=== PATIENT | female | born 1940 | race Caucasian/White ===

== ENCOUNTER 2018-07-21 19:50 | Inpatient (IN) | payer MEDICARE, OTHER ==
[2018-07-21] MEDS ORDERED: NS 0.9% 1000 ML** 1,000 ML IV ONE (20:01)
[2018-07-21] MEDS ORDERED: Haloperidol INJ IV/IM* 5 MG/ML AMP IM ONE (20:01)
--- NOTE | 2018-07-21 20:54 | ED ---
Abdominal Pain/Female - HPI Summary HPI Summary: The patient is a 77 year old female who is presenting to the [facility] with a chief complaint of decreased BM. The patient is a transfer from [facility] and is received by the [facility] for a potential SBO. Two valiums were given prior to [facility] arrival and the patient is known to have dementia. A BM has not occurred over the past few days. The patient also has vomited 3x since symptoms started. Abd pain is reported by the patient to be mild and wheezing is also reported. The symptoms are aggravated by nothing. Symptoms are alleviated by nothing. - History of Current Complaint Chief Complaint: EDConstipation Stated Complaint: SMALL BOWEL OBSTRUCTION PER EMS Time Seen by Provider: 07/21/18 19:53 Hx Obtained From: Patient Onset/Duration: Gradual Onset Timing: Constant Severity Initially: Mild Severity Currently: Mild Aggravating Factor(s): Nothing Alleviating Factor(s): Nothing Associated Signs and Symptoms: Positive: Vomiting, Other: - No BM for few days Allergies/Adverse Reactions: Allergies Allergy/AdvReac Type Severity Reaction Status Date / Time aspirin Allergy Unknown Verified 07/21/18 19:57 Reaction Details azithromycin Allergy Unknown Verified 07/21/18 19:57 Reaction Details Penicillins Allergy Unknown Verified 07/21/18 19:57 Reaction Details prednisone Allergy Unknown Verified 07/21/18 19:57 Reaction Details PMH/Surg Hx/FS Hx/Imm Hx Sensory History: Denies: Hx Legally Blind, Hx Deafness Opthamlomology History: Denies: Hx Legally Blind EENT History: Denies: Hx Deafness Neurological History: Reports: Hx Dementia - Immunization History Date of Tetanus Vaccine: unk Date of Influenza Vaccine: none Infectious Disease History: Unable to Obtain/Confirm Infectious Disease History: Denies: Traveled Outside the [place] in Last 30 Days - Family History Known Family History: Positive: Unknown - Pt has Dementia - Social History Occupation: Retired Alcohol Use: None Substance Use Type: Reports: None Smoking Status (MU): Never Smoked Tobacco Review of Systems Constitutional: Negative Eyes: Negative ENT: Negative Cardiovascular: Negative Positive: Shortness Of Breath - Wheezing Positive: Abdominal Pain, Vomiting, Other - Constipation (Lack of BM) Genitourinary: Negative Musculoskeletal: Negative Skin: Negative Neurological: Negative Psychological: Normal All Other Systems Reviewed And Are Negative: Yes Physical Exam - Summary Physical Exam Summary: Appearance: Well-appearing, Well-nourished, lying in bed comfortable Skin: Warm, dry, no obvious rash Eyes: sclera anicteric, no conjunctival pallor ENT: mucous membranes moist Neck: deferred Respiratory: No signs of respiratory distress Cardiovascular: Appears well perfused, pulses are nml Abdomen: Distended abd Two vertical surgical scars midline and left of midline Reducible incisional hernia left of the midline No inguinal hernias Musculoskeletal: Moving all 4 extremities without obvious discomfort Neurological: Awake and alert, mentation is normal, speech is fluent and appropriate Psychiatric: affect is normal, does not appear anxious or depressed Triage Information Reviewed: Yes Vital Signs On Initial Exam: Initial Vitals Temp Pulse Resp BP Pulse Ox 97.2 F 99 17 128/73 99 07/21/18 19:52 07/21/18 19:52 07/21/18 19:52 07/21/18 19:52 07/21/18 19:52 Vital Signs Reviewed: Yes Diagnostics - Vital Signs Vital Signs Temp Pulse Resp BP Pulse Ox 07/21/18 20:00 100 16 128/73 99 07/21/18 19:52 97.2 F 99 17 128/73 99 - Laboratory Lab Statement: Any lab studies that have been ordered have been reviewed, and results considered in the medical decision making process. - Radiology Chest X-ray Radiology Interpretation Completed By: ED Physician Summary of Radiographic Findings: Chest X-ray reveals as per ED Physician reports no acute processes. Abdominal Pain Fem Course/Dx - Course Course Of Treatment: The patient is a 77 year old female who is presenting to the [facility] with a cheif complaint of consitpation. The patient is also a dementia patient. The most recent BM was reported to be 2 days ago and the patient was transfered from [facility] to be checked for a potential SBO. She does have a distended abd and surgical scars as seen in the physical exam. A chest X-ray was taken in the [facility]. We contacted the hospitalist at [address] Freeman accepted patient care. The Dx will be incarcerated ventral hernia, and small bowel obstruction. - Diagnoses Provider Diagnoses: Small bowel obstruction, Incarcerated ventral hernia - Provider Notifications Discussed Care Of Patient With: Arpita Freeman Instructed by Provider To: Admit As Observation Discharge - Sign-Out/Discharge Documenting (check all that apply): Patient Departure - ADMITTED Patient Received Moderate/Deep Sedation with Procedure: No - Discharge Plan Condition: Stable Disposition: ADMITTED TO [facility] - Billing Disposition and Condition Condition: STABLE Disposition: Admitted to [facility] - Attestation Statements Document Initiated by Jribe: Yes Documenting Scribe: Chad Sun Provider For Whom Scribe is Documenting (Include Credential): Dr. Reji Moran Scribe Attestation: Chad Temple scribed for Dr. Reji Moran on 07/22/18 at 0101. Scribe Documentation Reviewed: Yes Provider Attestation: The documentation as recorded by the Chad bah accurately reflects the service I personally performed and the decisions made by , Dr. Reji Moran Status of Scribe Document: Viewed
[2018-07-21] MEDS ORDERED: Morphine INJ* 2 MG/ML 1 ML SYRINGE (TWO MG - NEW SYRINGE VERSION) IV PRN (21:41)
[2018-07-21] MEDS ORDERED: Ondansetron INJ* 2 MG/ML VIAL IV PRN (21:41)
[2018-07-21] MEDS ORDERED: Albuterol/Ipratropium NEB.SOL* Albuterol 2.5 MG/Ipratropium 0.5 MG 3 ML INH ONE (22:08)
--- NOTE | 2018-07-21 22:56 | HP ---
HISTORY AND PHYSICAL: ADDENDUM: PLAN: 1. Small bowel obstruction. The patient's RCRI given known history gives her 1 point, which is 6.0%. The conservative RCRI adding for possible history of congestive heart failure given her systolic murmur gives her 2 points , which is 10.1%. In addition, the patient's Lowe Score is 0.5%. These have been reviewed with my attending and also the family. They are aware of the risk of surgery. TEE MATHIS, MANAGER ROOFING [id number]/CPS #: [id number] [place]
--- NOTE | 2018-07-22 00:30 | PN ---
Hospitalist Progress Note Date of Service: 07/22/18 Pt sleeping upon arrival to unit, will hold on NGT insertion, family does not want that and she is not vomiting or in acute distress
--- NOTE | 2018-07-22 00:34 | HP ---
ADDENDUM NOW INCLUDED ON THIS REPORT CC: Dr. Webb * HISTORY AND PHYSICAL: DATE OF ADMISSION: 07/21/18 PRIMARY CARE PROVIDER: Dr. Webb. OTHER PROVIDERS: Dr. Gianluca Gusman, General Surgery. ATTENDING PHYSICIAN: Dr. Arpita Freeman * (dictated by Tee Mathis, GUSTAVO). CHIEF COMPLAINT: 1. Constipation. 2. Abdominal pain/bloating. 3. Vomiting. HISTORY OF PRESENT ILLNESS: Ms. Guevara is a 77-year-old female with a past medical history significant for dementia, encephalopathy, recurrent UTIs, hypertension, aortic calcification, shingles; who presented to the emergency department today from [facility] due to constipation, abdominal pain, bloating, vomiting and finding of incarcerated hernia and small bowel obstruction on her CT. While in the emergency room, the patient has received Haldol and fluid resuscitation. Dr. Gusman was consulted while the patient was in the emergency room, and plans to take the patient to surgery given the incarcerated hernia and small bowel obstruction. PAST MEDICAL HISTORY: 1. Dementia with psychosis. 2. Encephalopathy. 3. Recurrent UTIs. 4. Hypertension. 5. Calcified aorta. 6. Shingles. PAST SURGICAL HISTORY: 1. C-sections x4. 2. Hysterectomy. 3. Tonsillectomy. HOME MEDICATIONS: 1. Risperdal 2 mg p.o. b.i.d. 2. Lisinopril 10 mg p.o. daily. 3. Vitamin D 50,000 units weekly. 4. Clonazepam 0.5 mg p.o. b.i.d. 5. Seroquel 75 mg p.o. at bedtime. 6. Colace 100 mg p.o. b.i.d. 7. Vitamin B12 1000 mcg p.o. daily. ALLERGIES: ASPIRIN, AZITHROMYCIN, PENICILLIN, PREDNISONE. FAMILY HISTORY: Mother is 92 and is still living. Father at 81 due to dementia. SOCIAL HISTORY: The patient never smoked. The patient never drank. The patient never did drugs. The patient lives with her . The patient's surrogate decision maker will be her in the case she cannot make decisions of her own. REVIEW OF SYSTEMS: Review of systems was limited as the patient was sleeping, although her family reports that she has only been complaining of abdominal pain , constipation, nausea. Otherwise, the patient has not been complaining of shortness of breath, chest pain, wheezing, dysuria. PHYSICAL EXAMINATION GENERAL: Ms. Guevara is a 77-year-old female who is well developed, slightly obese, sitting in the ED stretcher. She appears in no acute distress. VITAL SIGNS: Temp 97.2, HR 99, RR 17, O2 saturation 99% on room air, BP 128/73. HEENT: Oral mucosa is moist without lesions. Posterior pharynx is clear. NECK: Full range of motion. No lymphadenopathy. RESPIRATORY: Symmetrical chest expansion. No accessory muscle use. Lungs had expiratory wheeze. No rhonchi or crackles. Cardiac: Regular rate and rhythm. S1, S2 present. Systolic murmur noted. No rubs or gallops. EXTREMITIES: Skin is warm and smooth bilaterally. No edema. No clubbing or cyanosis. Pedal pulses are 2+ bilaterally. MUSCULOSKELETAL: No pain or deformity. ABDOMEN: Soft, distended, tender to palpation. Bowel sounds are hypoactive. NEURO: The patient is awake, but no answering questions. The patient has severe dementia. Motor strength is 5/5 in upper and lower extremities. SKIN: Grossly intact. DIAGNOSTIC STUDIES/LAB DATA: WBC 8.26, hemoglobin 15.4, hematocrit 47.6, platelets 197. Glucose 108, BUN 9, creatinine 0.7, sodium 138, potassium 4.1, chloride 101, carbon dioxide 26, anion gap 11, calcium 9.7, total protein 7.8, albumin 3.6, globulin 4.2. Urine was negative for glucose, bilirubin, ketone, blood, protein, nitrites, it does have +1 leukocyte esterase, 6 to 10 wbc's, 0 to 5 squamous cells, no bacteria. CT of abdomen completed at [facility]. Per Dr. Gusman's review, it is consistent with a small bowel obstruction. ASSESSMENT AND PLAN: Ms. Guevara is a 77-year-old female with a past medical history significant for dementia, encephalopathy, urinary tract infection, hypertension, calcified aorta, shingles; who presented to the [facility] and was found to have a small bowel obstruction and therefore was transported to [facility] for further evaluation by surgeon. 1. Small bowel obstruction: As mentioned above, Dr. Gusman was consulted, who evaluated the patient in the emergency room. The patient will be taken to the OR in the morning after an echo can be obtained. We have ordered an NG tube that has not been placed at this time. The patient is not vomiting and not complaining of pain unless the area is palpated. The patient will be placed n.p.o. The patient will repeat labs in the morning. The patient's RCRI given known history gives her 1 point, which is 6.0%. The conservative RCRI adding for possible history of congestive heart failure given her systolic murmur gives her 2 points, which is 10.1%. In addition, the patient's Lowe Score is 0.5%. These have been reviewed with my attending and also the family. They are aware of the risk of surgery. 2. Dementia with psychosis: It should be mentioned that the patient was discharged on Saturday07/18/18 after 30 days at [facility] due to complications of her dementia. We will continue the patient's home meds when she is taking meds by mouth. At this time, we will hold them given her small bowel obstruction and upcoming surgery. 3. 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 We will monitor as needed. 4. Hypertension: The patient is currently normotensive. We will hold her lisinopril. 5. Calcification of aorta: The patient's reports that she sees Dr. Bennett in [place] who monitors her aorta. He reports she was seen in every 2 years, but has been lengthened every 3. The patient does have a systolic murmur , which we suspect is secondary to this. We will obtain an echocardiogram and records. 6. Shingles: The patient recently had shingles in May. No signs and symptoms. We will monitor the patient for pain. 14. FEN: The patient will be placed n.p.o. for upcoming surgery. I have ordered normal saline at 75 mL per hour. 15. Code status: The patient is a full code. 16. DVT prophylaxis: Based on DVT Risk Assessment, the patient is high risk. I will hold on ordering heparin at this time given her upcoming surgery and order SCDs. I would recommend starting chemical DVT prophylaxis as soon as possible after surgery. TIME SPENT: Approximately 70 minutes was spent on this admission, greater than half of that time was spent with the patient and family obtaining my history, performing my physical exam, and reviewing my plan of care. This case has also been reviewed with my attending, Dr. Freeman, who is in agreement with my plan of care. Reviewed by TEE MATHIS NP 07/28/18 @ 1929 [id number]/CPS #: [id number]/CPS #: [id number] [place]
[2018-07-22] MEDS: NS 0.9% 1000 ML** 1,000 ML IV SCH ×2 (00:53→12:57)
--- NOTE | 2018-07-22 01:07 | CONS ---
CONSULTATION REPORT: DATE OF CONSULT: 07/21/18 REFERRING PROVIDER: Dr. Arpita Freeman, hospitalist and Dr. Reji Moran, emergency room physician. REASON FOR CONSULTATION: Incarcerated ventral incisional hernia with small bowel obstruction. HISTORY OF PRESENT ILLNESS: Ms. Kiley Guevara is a 77-year-old woman, who was transferred from the emergency room at [facility] this afternoon to the emergency room here at [facility]. She has a past medical history for severe dementia with psychosis that has been present according to her for the past 6 to 7 years. She recently was admitted to [facility] for a month for mental status changes and dementia. Apparently, did not want her placed in a long-term and he took her home. He said that she is quite combative and wanders frequently. He is not able to adequately control her. She is on some psychiatric medications without significant improvement. Please see the separate dictated hospitalist note and [facility] records for details of her dementia. Apparently, she was at home today and developed worsening abdominal discomfort. The daughter and the who were both here in the emergency room said she has been having pain for the past several weeks and then she did have some retching this morning, subsequently prompted the visit to the emergency room. She has also been constipated without a bowel movement for several days. She had been eating fairly well, though had vomited several times while she was hospitalized at [facility]. While at the [facility] in the emergency room today, she was noted to have a normal white blood cell count. There were normal electrolytes and renal function. Lactic acid was not performed. There was no evidence of fever. It appears that heart rate over the past several weeks had been into the 90s to 100s by review of the [facility] records. She also underwent a CAT scan of the abdomen and pelvis. This also showed a mildly distended stomach with some mildly distended proximal small bowel. There was a ventral incisional hernia about the umbilicus that contained small bowel with a relative change in caliber in the bowel distal to the hernia consistent with a small bowel obstruction secondary to a ventral incisional hernia. There was no free fluid or free air. There was some evidence of inflammation. There was a large amount of stool and air throughout the colon. She was transferred to the emergency room here. PAST MEDICAL HISTORY: 1. Dementia with psychosis. 2. Apparently, a calcified aortic valve. This is per the family and she has seen a shot lighter in [place], though we do not have any of this workup. PAST SURGICAL HISTORY: Multiple sections. ALLERGIES: ASPIRIN, PENICILLIN, AZITHROMYCIN and PREDNISOLONE. SOCIAL HISTORY: She lives with her . She denies smoking or alcohol. She does not use illicit drugs. REVIEW OF SYSTEMS: Unable to adequately completely evaluate this from the patient's . The patient herself is not able to give history or answer questions appropriately. PHYSICAL EXAM: Pulse 91, blood pressure 105/70, respirations 13, oxygenation saturation 99%. General: She is an elderly female, appears a little elder than her stated age. She is sedated, but will wake up and scream and is not cooperative. She is not oriented to person, place, or time. The lungs had some expiratory wheezes. Heart was with regular rate and rhythm without murmurs , rubs, or gallops. Her abdomen is distended and somewhat firm. She has a well -healed midline incision from the umbilicus down to the pubis. There is also a well-healed transverse incision. She has a ventral incisional hernia at the umbilicus just to the left and lateral of the umbilicus and slightly below. She had normoactive bowel sounds throughout. She has no generalized peritonitis. There was some mild tenderness on deeper palpation of the hernia. There are no overlying skin changes or redness. IMPRESSION: Incarcerated ventral incisional hernia creating a partial to complete small bowel obstruction. I am not certain by history how long she has been having discomfort as she is an unreliable historian and she has been in the hospital at the [facility] over the past 30 days as per above. Her white blood cell count was normal. She has normal renal function and no peritoneal irritation or evidence of peritonitis. At the best side, after giving her a small amount of sedation, I was unable to reduce the hernia with abdominal wall pressure due to discomfort and extreme behavior. I had a long discussion with the hospitalist, the patient's family, as well as Anesthesia. She will require urgent operative intervention for repair of her incarcerated ventral incisional hernia. I do not believe that this is strangulated at this time as there does not appear to be evidence of ischemia, but this should be done in the next 24 hours. PLAN: Plan is to be admitted to the hospitalist service. An echocardiogram was going to be obtained first thing in the morning. There is operative time later in the morning and we have scheduled her as an add-on urgent case. We will keep her n.p.o. and continue IV fluids and recheck laboratory workup in the morning. I discussed the procedure with the who will be giving consent as well as the family who was present in the emergency room. The risks of but not limited to bleeding, infection, intraabdominal abscess formation, injury to peritoneal and retroperitoneal structures, possibility of bowel resection with anastomosis and subsequent anastomotic leak causing peritonitis and sepsis. Repair of ventral incisional hernias was discussed including the possible use of mesh or biologic mesh and hernia recurrence. Ultimately, we also discussed the chance of , pulmonary failure, respiratory failure, renal failure as well. [id number]/[id number] #: [id number] [place]
[2018-07-22] MEDS: Morphine 4 MG/ML VIAL (1 ml) 4 MG/ML VIAL IV PRN ×3 (05:28→16:02)
[2018-07-22 05:29] LABS: ABS Basophils 0.1 10^3/ul (0-0.2); ABS Eosinophils 0.1 10^3/ul (0-0.6); ABS Monocytes 0.6 10^3/ul (0-0.8); ABS Neutrophils 8.6 10^3/ul (1.5-7.7); ABS Nucleated RBC 0 10^3/ul; Eosinophil % 0.5 %; Hematocrit 43 % (33-41); Hemoglobin 14.2 g/dL (12.0-16.0); Lymphocyte % 10.1 %; Mean Corpuscular HGB Conc 34 g/dL (31-36); Mean Corpuscular Hemoglobin 30 pg (27-31); Mean Corpuscular Volume 88 fL (80-97); Mean Platelet Volume 7.9 fL (7.4-10.4); Nucleated Red Blood Cells % 0; Platelet Count 194 10^3/uL (150-450); Red Blood Count 4.82 10^6 /uL (3.70-4.87); Red Cell Distribution Width 15 % (10.5-15); White Blood Count 10.4 10^3/uL (3.5-10.8)
[2018-07-22 05:44] LABS: Albumin 3.4 g/dL (3.2-5.2); Albumin/Globulin Ratio 1.2 (1-3); BUN/Creatinine Ratio 17.6 (8-20); Calcium 8.7 mg/dL (8.6-10.3); EGFR African American 102.1 (>60); EGFR Non-African American 84.4 (>60); Globulin 2.8 g/dL (2-4); Potassium 4.7 mmol/L (3.5-5.0); Total Bilirubin 0.5 mg/dL (0.2-1.0); Total Protein 6.2 g/dL (6.4-8.9)
--- NOTE | 2018-07-22 08:40 | ECHO ---
*[facility]* [place] [address] Fax #: [phone] Transthoracic Echocardiogram Patient: Paola, Height: 59 in / Kiley 149.9 cm : 1940 Weight: 189.6 lb / Study Date: 07/22/2018 86.2 kg Age: 77 BP: 102 / 68 Gender: F BMI/BSA: 38.4 kg/m^2 HR: 94 bpm / 1.8 m^2 *Coal Handler: * Nelda Guevara [facility] *Referring Physician: * Julisa Hernandez *Reading Physician: * Tunde Dixon MD Indications: Murmur. History: Aortic stenosis. Dementia. Risk factors: Hypertension. Conclusions Summary: 1. Left ventricle: The cavity size is normal. Wall thickness is normal. Systolic function is normal. The estimated ejection fraction is 55-60%. Wall motion is normal; there are no regional wall motion abnormalities. 2. Mitral valve: There is mild regurgitation. 3. Aortic valve: The valve is trileaflet. The leaflets are moderately calcified. The findings are consistent with moderate to severe stenosis. The peak systolic velocity is 4 m/sec. The mean systolic gradient is 36.0 mm Hg. 4. Tricuspid valve: There is mild regurgitation. 5. Pericardium, extracardiac: There is no pericardial effusion. 6. Pulmonary arteries: Systolic pressure is within the normal range, estimated to be 31 mm Hg. 7. Impressions: No previous study was available for comparison. Study data: Transthoracic echocardiogram. Procedure: Transthoracic echocardiography was performed. Image quality was fair. The study was technically limited due to body habitus. Complete 2D, spectral Doppler, and color flow Doppler. Location: Bedside. Patient status: Inpatient. Patient room number: 337-1. Rhythm: Normal sinus rhythm with PVC's. Findings Left ventricle: The cavity size is normal. Wall thickness is normal. Systolic function is normal. The estimated ejection fraction is 55-60%. Wall motion is normal; there are no regional wall motion abnormalities. Doppler parameters are consistent with abnormal left ventricular relaxation (grade 1 diastolic dysfunction). Right ventricle: The cavity size is at the upper limits of normal. Wall thickness is mildly increased. The moderator band is prominent. Systolic function is normal. Left atrium: The atrium is mildly to moderately dilated. Right atrium: The atrium is mildly dilated. Mitral valve: The annulus is calcified. The leaflets are mildly thickened. There is no evidence of stenosis. There is mild regurgitation. The peak diastolic gradient is 2.7 mm Hg. Aortic valve: The valve is trileaflet. The leaflets are moderately calcified. The findings are consistent with moderate to severe stenosis. There is mild to moderate regurgitation. The valve area by the velocity-time integral method is 0.70 cm^2. The valve area index by the velocity-time integral method is 0.39 cm^2/m^2. The ratio of LVOT to aortic valve peak velocity is 0.2. The valve area by the peak velocity method is 0.63 cm^2. The valve area index by the peak velocity method is 0.35 cm^2/m^2. The ratio of LVOT to aortic valve mean velocity is 0.22. The valve area by the mean velocity method is 0.7 cm^2. The valve area index by the mean velocity method is 0.38 cm^2/m^2. The mean systolic gradient is 36.0 mm Hg. The peak systolic gradient is 63.0 mm Hg. Tricuspid valve: The leaflets are normal thickness. There is no evidence of stenosis. There is mild regurgitation. Pulmonic valve: The leaflets are normal thickness. There is no evidence of stenosis. There is mild regurgitation. The peak systolic gradient is 5.0 mm Hg. Aorta: Ascending aorta: The ascending aorta is appears normal. Aortic arch: The aortic arch is appears normal. The aortic root is not dilated. Pericardium: A prominent pericardial fat pad is present. There is no pericardial effusion. Pulmonary arteries: The main pulmonary artery is normal-sized. Systolic pressure is within the normal range, estimated to be 31 mm Hg. Systemic veins: Inferior vena cava: Not well visualized. Measurements Left ventricle Value Ref Right atrium Value Ref GRETA, LAX 4.6 cm 3.8 - 5.2 SI dim, ES (H) 5.4 cm 3.4 - 5.3 ESD, LAX (H) 3.8 cm 2.2 - 3.5 ML dim, ES, A4C (H) 4.5 cm 2.6 - 4.4 FS, LAX (L) 18 % 27 - 45 PW, ED, LAX 0.9 cm 0.6 - 0.9 Aortic valve Value Ref GRETA 4.6 cm 3.8 - 5.2 Shital diam, ED 1.8 cm --------- ESD (H) 3.8 cm 2.2 - 3.5 Peak v, S 4 m/sec --------- FS (L) 18 % 27 - 45 Mean v, S 2.8 m/sec --------- PW, ED 0.9 cm 0.6 - 0.9 VTI, S 84.5 cm --------- EF (L) 37 % 54 - 74 Mean grad, S 36.0 mm Hg --------- Mass (H) 152 g 66 - 150 Peak grad, S 63.0 mm Hg --------- Mass/bsa 85 g/m^2 44 - 88 EUGENIE, VTI 0.70 cm^2 --------- Mass/ht 101.51 g/m --------- EUGENIE, Vmax 0.63 cm^2 --------- Mass/ht^2.7 51.03 g/m^2.7 --------- AR peak v 3.11 m/sec --------- E', lat shital, TDI (L) 5.3 cm/sec >=10.0 AR PHT 373 ms - -------- E/e', lat shital, 15 --------- AR peak grad 39 mm Hg ---- ----- TDI E', med shital, TDI (L) 3.8 cm/sec >=7.0 Mitral valve Value R ef E/e', med shital, 22 --------- Peak E 0.82 m/sec ---- ----- TDI Peak A 0.99 m/sec --------- E', avg, TDI 4.6 cm/sec --------- Decel time 243 ms ---- ----- E/e', avg, TDI (H) 18 <=14 Peak grad, D 2.7 mm Hg - -------- Peak E/A ratio 0.8 --------- LVOT Value Ref Diam, S 2.00 cm --------- Tricuspid valve Value Ref Area 3.1 cm^2 --------- TR peak v 2.42 m/sec <=2.8 Peak ed, S 0.8 m/sec --------- Peak RV-RA grad, S 23 mm Hg --------- Mean ed, S 0.61 m/sec --------- Mean grad, S 2 mm Hg --------- Aortic root Value Ref SV 59 ml --------- Root diam 2.7 cm <4.0 Ventricular septum Value Ref Ascending aorta Value Ref IVS, ED, LAX (H) 1.0 cm 0.6 - 0.9 AAo AP diam, S 2.8 cm --------- IVS, ED (H) 1.0 cm 0.6 - 0.9 AAo AP diam/bsa, S 1.6 cm/m^2 --------- Right ventricle Value Ref Aortic arch Value Ref GRETA, LAX 3.4 cm --------- Arch diam 2.0 cm --------- GRETA minor ax, A4C (H) 4.4 cm 1.9 - 3.5 mid Decending aorta Value Ref Candido peak ed 1.17 m/sec --------- Left atrium Value Ref AP dim, ES (H) 4.20 cm 2.70 - 3.80 ML dim, A4C 4.9 cm --------- Vol/bsa, ES, 1-p (H) 41 ml/m^2 11 - 40 A4C Vol/bsa, ES, A/L (H) 41 ml/m^2 16 - 34 Legend: (L) and (H) nithin values outside specified reference range. Prepared and electronically signed by Tunde Dixon MD 07/22/2018 08:39
--- NOTE | 2018-07-22 08:41 | PN ---
Progress Note - Progress Note Date of Service: 07/22/18 SOAP: Subjective: Comfortable overnight No abdominal complaints Objective: Temp Pulse Resp BP Pulse Ox 98.9 F 103 20 102/68 94 07/22/18 02:58 07/22/18 02:58 07/22/18 05:28 07/22/18 03:52 07/22/18 02:58 PEX: Comfortable-will arouse with stimulation Abd is distended and firm-bowel sounds present. Incisional hernia remains incarcerated and firm, mild tenderness on palpation. No skin changes. Unable to reduce hernia. Laboratory Results - last 24 hr 07/22/18 07/22/18 07/22/18 05:16 05:16 05:16 WBC 10.4 RBC 4.82 Hgb 14.2 Hct 43 H MCV 88 MCH 30 MCHC 34 RDW 15 Plt Count 194 MPV 7.9 Neut % (Auto) 82.5 Lymph % (Auto) 10.1 Bonner % (Auto) 6.3 Eos % (Auto) 0.5 Baso % (Auto) 0.6 Absolute Neuts (auto) 8.6 H Absolute Lymphs (auto) 1.0 Absolute Monos (auto) 0.6 Absolute Eos (auto) 0.1 Absolute Basos (auto) 0.1 Absolute Nucleated RBC 0 Nucleated RBC % 0 Sodium 136 Potassium 4.7 Chloride 106 Carbon Dioxide 25 Anion Gap 5 BUN 12 Creatinine 0.68 Est GFR ( Amer) 102.1 Est GFR (Non-Af Amer) 84.4 BUN/Creatinine Ratio 17.6 Glucose 122 H Lactic Acid 1.8 Calcium 8.7 Total Bilirubin 0.50 AST 20 ALT 19 Alkaline Phosphatase 70 Total Protein 6.2 L Albumin 3.4 Globulin 2.8 Albumin/Globulin Ratio 1.2 Assessment: Incarcerated ventral incisional hernia with SBO, unable to reduce hernia at bedside with sedation Labs reviewed-WBC and lactic acid normal, normal renal function Review of records at [facility] from recent hospitalization show mild tachycardia in the low 100's for the last 10 days Dementia-severe Plan: Exploratory laparotomy and repair of ventral incisional hernia with mesh, possible bowel resection, possible ostomy today. Procedure discussed with patient's who will give consent. Risks of, but not limited to, of bleeding, infection, abscess, injury to peritoneal and retroperitoneal organs, possible bowel resection with ostomy, , organ failure and prolonged ventilator dependence explained. Her wants everything done to help his and with SBO she will not survive without surgery. He understands the high risks of surgical intervention and possible poor outcomes. ECHO results pending. All of the above was discussed with hospitalists and anesthesia last night as well.
--- NOTE | 2018-07-22 11:09 | PN ---
Progress Note - Progress Note Date of Service: 07/22/18 SOAP: Subjective: ECHO reviewed-nl EF but moderate to severe . Reviewed with anesthesiology and medicine, anesthesia requested cardiology consult. Discussed with Dr. Dixon, he will see today. Anesthesiology is concerned with degree of and is reluctant to proceed with case here. This case is not emergent but is urgent and she does have a bowel obstruction but not obvious strangulation and can be transferred to a higher level of care if done expeditiously. Discussed with family and Dr. Olsen with hospitalist service and explained situation, for optimal medical and surgical management she will make arrangements for transfer today.
[2018-07-22 12:40] VITALS: BP 100/50
--- NOTE | 2018-07-22 14:28 | TRS ---
CC: Dr. Jb Valderrama * TRANSFER SUMMARY: DATE OF ADMISSION: 07/21/18 DATE OF TRANSFER: 07/22/18 ACCEPTING FACILITY: [facility]. ACCEPTING PHYSICIAN: Dr. Jb Valderrama. PRINCIPAL TRANSFER DIAGNOSES: 1. Incarcerated ventral incisional hernia. 2. Small bowel obstruction. 3. Mrahqzcs-[id number] aortic stenosis. SECONDARY TRANSFER DIAGNOSES: 1. Dementia with psychosis. 2. Recurrent urinary tract infections. 3. Hypertension. PHYSICAL EXAMINATION: At the time of discharge, temperature 98.7, heart rate 97 , respiratory rate 16, pulse ox 97% on room air, blood pressure 100/50. General : Drowsy, elderly female, in no distress. She has recently received morphine and has difficulty answering questions. Chest: She has a systolic murmur diffusely with radiation to the carotids. Her abdomen is distended, tympanic, and tender diffusely. DIAGNOSTIC STUDIES/LAB DATA: White blood cells 10.4, hemoglobin 14.2, platelets 194. Sodium 136, potassium 4.7, chloride 106, bicarb 25, BUN 12, creatinine 0.68 , glucose 122, lactic acid 1.8. CT abdomen and pelvis: I do not currently have access to this report as it was completed at an outside hospital where she was transferred here from; however, according to our surgeon's review of the CT image, he reports a mildly distended stomach with some mildly distended proximal small bowel, a ventral incisional hernia about the umbilicus that contains small bowel with a relative change in caliber in the bowel distal to the hernia consistent with small bowel obstruction secondary to a ventral incisional hernia with no free fluid or free air, some evidence of inflammation and large amount of stool and air throughout the colon. HOSPITAL COURSE BY PROBLEM: 1. Ventral incisional hernia that is incarcerated and causing a small bowel obstruction. She was evaluated by Surgery in the emergency department and they recommended admission and urgent surgery, which was planned for this morning, ; however, a preoperative echocardiogram was obtained given her history of aortic stenosis and it showed [id number] aortic stenosis. This is addressed below. However, regarding her small bowel obstruction, an NG tube was unable to be placed due to the patient's refusal; however, she has not had any nausea or vomiting. She continues to have abdominal pain that is currently well managed with morphine. She has no evidence of necrosis or ischemia. She has remained hemodynamically stable. Her lactic acid is normal. 2. Yrgxjwvm-tz-bdiect aortic stenosis. The diagnosis of aortic stenosis was known by her and her family and she had been following with a cardiothoracic surgeon in [place]; however, it had been stable for many years per their report. Our anesthesiologists were not comfortable with this diagnosis intraoperatively and this is the reason she is being transferred to higher level of care for cardiac anesthesia and possibly a cardiac ICU if warranted. 3. Dementia with psychosis. She takes Risperdal, Seroquel, and clonazepam. DISPOSITION: She is being transferred to [facility] where she has been accepted by General Surgery. She is in stable condition. TIME SPENT: Forty-five minutes was spent on this discharge. I have discussed the risks and benefits of transfer to a higher level of care with Kiley's daughter and her , who are in agreement with this plan. [id number]/[facility] #: [id number] [place]
== END 2018-07-22 16:05 | disposition short-term general hospital (02) | DRG 394 ==
LOC: ED 19:50 → SSU 21:41
PROVIDERS: ADMIT Internal Medicine; ATTEND Internal Medicine
DX: K43.0 Incisional hernia with obstruction, without gangrene (principal); G93.40 Encephalopathy, unspecified; N39.0 Urinary tract infection, site not specified; I50.20 Unspecified systolic (congestive) heart failure; I11.0 Hypertensive heart disease with heart failure; I35.0 Nonrheumatic aortic (valve) stenosis; F03.90 Unspecified dementia, unspecified severity, without behavioral disturbance, psychotic disturbance, mood disturbance, and anxiety; F28 Other psychotic disorder not due to a substance or known physiological condition; K59.00 Constipation, unspecified; Z87.440 Personal history of urinary (tract) infections; Z79.899 Other long term (current) drug therapy; Z88.6 Allergy status to analgesic agent; Z88.1 Allergy status to other antibiotic agents; Z88.0 Allergy status to penicillin; Z88.8 Allergy status to other drugs, medicaments and biological substances; Z84.89 Family history of other specified conditions
CPT/HCPCS: 36415; 71046; 80053; 83605; 85025; 93005; 93306; 99284; A9270-GY; J1630; J2270; J2405